=== PATIENT | male | born 1995 | race African-American/Black ===

== ENCOUNTER 2017-08-30 20:08 | Emergency (ER) | payer SELFPAY ==
[~2017-08-30] VITALS: Ht 180.3 cm; Wt 81.5 kg
[2017-08-30 20:13] VITALS: BP 146/80; PULSE 106; RESP 18; TEMP 102.9; O2SAT 96
[2017-08-30] MEDS ORDERED: OSEL75 PO (20:39)
--- NOTE | 2017-08-30 20:41 | PD ---
HPI Chief Complaint: Cold / Flu Symptoms Time Seen by Provider: 20:22 Travel History International Travel<30 days: No Contact w/Intl Traveler<30days: No Traveled to known affect area: No History of Present Illness HPI 22-year-old male complains of sore throat cough fever or generalized malaise lasting for about 1 day. Appetite has been normal and there has been no vomiting or diarrhea. No international travel. The patient reports the nurse he's had cough for 3 days with fever nausea and diarrhea starting yesterday. He denies sick contacts. PFSH Past Medical History Medical History: Denies Significant Hx Diminished Hearing: No Immunizations Current: Yes Tetanus Vaccination: > 5 Years Influenza Vaccination: No Past Surgical History Surgical History: No Previous Surgery Social History Alcohol Use: No Tobacco Use: No Substance Use: No Allergies-Medications (Allergen,Severity, Reaction): Coded Allergies: shellfish derived (Verified Allergy, Severe, angio edema, 08/30/17) Reported Meds & Prescriptions Reported Meds & Active Scripts Active No Active Prescriptions or Reported Medications Review of Systems Except as stated in HPI: all other systems reviewed are Neg General / Constitutional: Positive: Fever HENT: Positive: Sore Throat Respiratory: Positive: Cough Physical Exam Narrative GENERAL: 22-year-old male well-nourished well-developed no acute distress SKIN: Warm and dry. HEAD: Atraumatic. Normocephalic. EYES: Pupils equal and round. No scleral icterus. No injection or drainage. ENT: No nasal bleeding or discharge. Mucous membranes pink and moist. Posterior oropharynx is widely patent pink without exudate or asymmetry. NECK: Trachea midline. No JVD. CARDIOVASCULAR: Tachycardia, rate about 110. Regular rhythm. RESPIRATORY: No significant dyspnea or tachypnea. GASTROINTESTINAL: Abdomen soft, non-tender, nondistended. Hepatic and splenic margins not palpable. MUSCULOSKELETAL: Extremities without clubbing, cyanosis, or edema. No obvious deformities. NEUROLOGICAL: Awake and alert. No obvious cranial nerve deficits. Motor grossly within normal limits. Five out of 5 muscle strength in the arms and legs. Normal speech. PSYCHIATRIC: Appropriate mood and affect; insight and judgment normal. Data Data Last Documented VS Vital Signs Date Time Temp Pulse Resp B/P (MAP) Pulse Ox O2 Delivery O2 Flow Rate FiO2 08/30/17 20:20 118 18 98 Room Air 08/30/17 20:13 102.9 146/80 (102) Vital signs reviewed MDM Medical Decision Making Medical Screen Exam Complete: Yes Emergency Medical Condition: Yes Medical Record Reviewed: Yes Differential Diagnosis Influenza, pneumonia, bronchitis Narrative Course Presentation is essentially pathognomonic for influenza the season. With false- negative assays from the lab empiric coverage is considered reasonable for this otherwise healthy 22-year-old male. We discussed return precautions and at home care. The patient is agreeable with plan and ready for discharge. Diagnosis Primary Impression: Viral syndrome Referrals: Primary Care Physician 2 days Med/Other Pt SpecificInfo: Prescription(s) given Scripts Oseltamivir (Tamiflu) 75 Mg Cap 75 MG PO BID for Mgmt Viral Infection for 7 Days, #14 CAP 0 Refills Prov: Ray Boston MD 08/30/17 Disposition: 01 DISCHARGE HOME Condition: Stable Ray Boston MD Aug 30, 2017 20:41
[2017-08-30 21:08] VITALS: BP 150/85
== END 2017-08-30 21:09 | disposition home or self-care (01) ==
LOC: PHED 20:08
DX: B34.9 Viral infection, unspecified (principal); R19.7 Diarrhea, unspecified; R11.0 Nausea
CPT/HCPCS: 99283